=== PATIENT | female | born 1955 | race Caucasian/White ===

== ENCOUNTER → 2022-12-18 14:37 | Outpatient (BNVA) | payer OTHER, SELFPAY | PROVIDERS: PCP Internal Medicine; Visit Provider Hospitalist ==

== ENCOUNTER 2023-01-14 10:15 | Outpatient (REF) | payer OTHER, SELFPAY ==
--- NOTE | ~2023-01-14 | XR_ITS ---
EXAMINATION: XR CHEST CLINICAL INFORMATION: Chronic cough. COMPARISON: None available. TECHNIQUE: 2 views of the chest were obtained. FINDINGS: The lungs are well expanded. Patchy opacity in the left upper lobe. No pleural effusion. Cardiac silhouette is within normal limits. XR/XR chest 2V IMPRESSION: Patchy opacity in the left upper lobe may represent an acute infiltrate. Advise clinical correlation and short interval follow-up imaging.
--- NOTE | 2023-01-14 11:13 | PFT_ITS ---
INDICATION: Chronic cough. SPIROMETRY: FEV1 to FVC of 89% with an FEV1 of 2.56 L, which is 111% predicted and FVC of 2.88 L, which is 95% predicted. There was a significant response to bronchodilators noted with an FVC improvement of 23% and in the FEV1 by 31%. Of note, there was 100% improvement of the EJO14-07. Maximum voluntary ventilation 68% predicted. LUNG VOLUMES: Total lung capacity 93% predicted. DIFFUSION CAPACITY: DLCO 96% predicted. INTERPRETATION: There is no definitive obstructive nor restrictive ventilatory defects identified. There is a significant response to bronchodilators noted, primarily the small airways. There is mild decrease in maximum voluntary ventilation, which is likely secondary to deconditioning. Lung volumes are within normal limits, and diffusion capacity also within normal limits. If asthma is in the differential, a methacholine challenge may be helpful in assessing for hyperreactive airways. Otherwise, clinical correlation warranted. MD TAMMI Crespo/LISET / [id number]
== END 2023-01-14 10:16 | disposition home or self-care (01) ==
LOC: HO.RESP 10:15
PROVIDERS: PCP Internal Medicine; Visit Provider Hospitalist
DX: R05.3 Chronic cough (principal)
CPT/HCPCS: 71046; 94060; 94727; 94729

== ENCOUNTER → 2023-01-14 11:13 | Outpatient (BNV) | payer OTHER, SELFPAY | PROVIDERS: PCP Internal Medicine; Visit Provider Hospitalist | DX: R05.3 Chronic cough (principal) | CPT/HCPCS: 94060; 94727; 94729 ==

== ENCOUNTER 2023-02-12 10:45 | Outpatient (AMB) | payer OTHER, SELFPAY ==
--- NOTE | 2023-02-12 10:56 | A.OFFVIS_ITS ---
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 The patient states that she has had this cough now for many years. the cough is usually nonproductive in nature and moderate severity. Not necessarily associated with position or activities. She has been evaluated for this cough also numerous times. Initially, she was evaluated by Allergy immunology. She did have allergy testing and she had been on allergy shots for chronic rhinitis and postnasal drip. The patient also was started on tricyclics for neurogenic cough. Initially that tricyclics were very effective for her. But then she had to increase the dose further and she did not taking too much of that medication. Now she is trying to get off it. On further questions she does have also reflux disease. The patient had been on omeprazole for some time without any significant improvement of the cough. She has not tried a reflux diet. We did talk about the importance of non acid reflux. Patient also continues to have postnasal drip and chronic rhinitis. Likely component of upper airway cough syndrome. The patient did have a methacholine challenge in the past which apparently was negative although I do not have the results. In addition to that several years ago she did have a chest x-ray. No recent imagi ng studies or pulmonary function studies at this time. 02/12/2023 the patient is here for pulmonary follow-up visit. She continues have a cough. Moderate severity. Nasal therapy was not effective. The patient did undergo pulmonary function studies. Appears to have some degree of response to bronchodilators. Also has some evidence of small airways disease. Therefore will start the patient on respiratory therapy. I do believe Symbicort Will be effective in helping her symptoms. Will go ahead and start the therapy. In addition to that she needs to have a chest x-ray. [facility] Medical History (Updated 02/12/23 @ 11:25 by Helder Hewitt MD) Chronic allergic rhinitis Chronic cough GERD (gastroesophageal reflux disease) Pneumonia Social History (Updated 12/18/22 @ 15:24 by KULDEEP Davila) Patient Tobacco Use Status: Never used Tobacco Review of Systems Const Denies fever(s) and Denies weight loss Eyes Denies change in vision ENT Reports nasal congestion, Reports nasal discharge, Reports post nasal drip and Denies throat swelling Card Denies chest pain Resp Denies chest congestion and Reports cough GI Reports dyspepsia and Reports heartburn Musc Reports no additional complaints Skin/Breast Denies rash Neuro Reports no additional complaints Mauricio/Lymph Denies lymphadenopathy Aller/Immun Denies throat swelling Physical Exam Vital Signs: Last Vital Signs Pulse 89 02/12/23 10:57 Pulse Ox 96 02/12/23 10:57 Oxygen Delivery Method Room Air 02/12/23 10:57 BMI result Body Mass Index 28.3 Const General: comfortable HEENT Head: Yes normocephalic Neck Neck: Yes supple Chest Chest palpation & inspection: normal inspection of the chest Resp Auscultation: clear to auscultation bilaterally, no rales and no wheezes Cardio Rate: regular rate Rhythm: regular rhythm Heart sounds: S1 normal heart sound present and S2 normal heart sound present GI Palpation (GI): Soft to palpation Skin General skin exam: no rashes or lesions noted Extrem General: Yes no clubbing, cyanosis or edema Results Reviewed Results Reviewed: [place] [id number] Pulmonary Function Report Signed Patient: Charmaine Parham MR#: [id number] : 1955 Acct:[id number] Age/Sex: 67 / F ADM Date: 01/14/23 Loc: HO.RESP Attending Dr: Helder Hewitt MD Ordering Physician: Helder Hewitt MD Date of Service: 01/14/23 Procedure(s): PFT? pulmonary function test Accession Number(s): [id number] cc: Helder Hewitt MD~ ? INDICATION:? Chronic cough. ?? SPIROMETRY:? FEV1 to FVC of 89% with an FEV1 of 2.56 L, which is 111% predicted and FVC of 2.88 L, which is 95% predicted.? There was a significant response to bronchodilators noted with an FVC improvement of 23% and in the FEV1 by 31%. Of note, there was 100% improvement of the FUE90-75.? Maximum voluntary ventilation 68% predicted. ?? LUNG VOLUMES:? Total lung capacity 93% predicted. ?? DIFFUSION CAPACITY:? DLCO 96% predicted. ?? INTERPRETATION:? There is no definitive obstructive nor restrictive ventilatory defects identified.? There is a significant response to bronchodilators noted, primarily the small airways.? There is mild decrease in maximum voluntary ventilation, which is likely secondary to deconditioning.? Lung volumes are within normal limits, and diffusion capacity also within normal limits.? If asthma is in the differential, a methacholine challenge may be helpful in assessing for hyperreactive airways.? Otherwise, clinical correlation warranted. ? Helder Hewitt MD ? MR/MODL DD:? 01/15/2023 08:23:35 DT:? 01/15/2023 11:21:30 Job #:? [id number] / [id number] Dictated By: Helder Hewitt MD Signed By: <Electronically signed by Helder Hewitt MD> 01/15/23 1543 DD/ 2 TD/TT: 01/15/23 1121 Supervisor Blood: Assessment & Plan Assessment & Plan (1) Chronic cough: Code(s): R05.3 - Chronic cough (2) Chronic allergic rhinitis: Code(s): J30.9 - Allergic rhinitis, unspecified (3) GERD (gastroesophageal reflux disease): Code(s): K21.9 - Gastro-esophageal reflux disease without esophagitis Plan REC: reflux diet sleep with HOB elevated CXR start Symbicort F/U 3-4 months Orders: Orders XR chest 2V 02/12/23 J18.9 - Pneumonia, unspecified organism Medications: New budesonide-formoterol 160-4.5 mcg/actuation (Symbicort) 2 puffs inhalation BID 30 days 10.2 grams 11RF J44.9 - Chronic obstructive pulmonary disease, unspecified budesonide-formoterol 160-4.5 mcg/actuation (Symbicort) 2 puffs inhalation BID 30 days 10.2 grams 11RF J44.9 - Chronic obstructive pulmonary disease, unspecified Coding Level of Care Code Est Pt Level 4 (98553) Diagnoses Chronic cough R05.3 Chronic allergic rhinitis J30.9 GERD (gastroesophageal reflux disease) K21.9 Time Spent (min) 18
[2023-02-12 10:57] VITALS: PULSE 89; O2SAT 96; BMI 28.3
== END 2023-02-12 11:31 | disposition home or self-care (01) ==
PROVIDERS: PCP Internal Medicine; Visit Provider Hospitalist
DX: R05.3 Chronic cough (principal); J30.9 Allergic rhinitis, unspecified; K21.9 Gastro-esophageal reflux disease without esophagitis
CPT/HCPCS: 99214

== ENCOUNTER → 2023-02-12 10:45 | Outpatient (BNVA) | payer OTHER, SELFPAY | PROVIDERS: PCP Internal Medicine; Visit Provider Hospitalist ==

== ENCOUNTER 2023-03-02 12:19 | Outpatient (REF) | payer OTHER, SELFPAY ==
--- NOTE | ~2023-03-02 | XR_ITS ---
EXAMINATION: XR CHEST CLINICAL INFORMATION: Pneumonia COMPARISON: 01/14/2023 TECHNIQUE: 2 views of the chest were obtained. FINDINGS: There is no gross pneumothorax. Heart size is normal. Stable cardiomediastinal silhouette. Near-complete resolution of previously identified left upper lobe opacity. No pleural effusion. Degenerative changes in the thoracic spine. Possible 5 mm right upper lobe pulmonary nodule. Persistent prominence of the right hilum and haziness in the right infrahilar region. XR/XR chest 2V IMPRESSION: Near-complete resolution of previously identified left upper lobe opacity. Possible 5 mm right upper lobe pulmonary nodule. Persistent prominence of the right hilum and haziness in the right infrahilar region. CT scan of the chest recommended for further evaluation.
== END 2023-03-02 12:20 | disposition home or self-care (01) ==
LOC: HO.XRAY 12:19
PROVIDERS: Visit Provider Hospitalist
DX: J18.9 Pneumonia, unspecified organism (principal)
CPT/HCPCS: 71046

== ENCOUNTER 2023-03-31 14:51 | Outpatient (REF) | payer OTHER, SELFPAY ==
--- NOTE | ~2023-03-31 | CT_ITS ---
EXAMINATION: CT CHEST WITHOUT CONTRAST CLINICAL INFORMATION: Pneumonia. COMPARISON: Chest x-ray 03/02/2023. TECHNIQUE: Multidetector volumetric CT imaging of the chest was done. Axial MIP volume rendering provided. Sagittal and coronal reformatted images were obtained. This CT examination was performed using dose optimization techniques as appropriate, variously including the following: *Automated exposure control *Adjustment of mA and/or kV according to patient size (this includes techniques or standardized protocols for targeted exams where dose is matched to indication/reason for exam; i.e. extremities or head) *Use of iterative reconstruction technique DLP: 214 mGy-cm FINDINGS: LUNGS: 7 mm average diameter at the right apex may be pleural-parenchymal scarring. Additional scattered micronodules for which no follow-up is indicated as per Fleischner Society guidelines. No consolidation. No evidence of interstitial lung disease. MEDIASTINUM: No adenopathy. No pericardial effusion. Small hiatal hernia. CORONARY ARTERY CALCIFICATION: Mild LAD and LCx calcium. PLEURA: There is no pleural effusion. No pleural mass or thickening. AXILLA: No adenopathy. UPPER ABDOMEN: Unremarkable. OSSEOUS STRUCTURES: Mild degenerative changes in the spine. CT/CT chest wo IV con IMPRESSION: No focal pneumonia. 7 mm average diameter nodule at the right apex may be related to pleural parenchymal scarring. Per Fleischner Society Guidelines, recommend a non-contrast chest CT at 6-12 months; if patient is high risk for malignancy, consider an additional non-contrast chest CT at 18-24 months. If patient is low risk for malignancy, non-contrast chest CT at 18-24 months is optional. Fleischner guidelines were followed.
== END 2023-03-31 14:52 | disposition home or self-care (01) ==
LOC: HO.CT 14:51
PROVIDERS: Visit Provider Hospitalist
DX: J18.9 Pneumonia, unspecified organism (principal); R91.1 Solitary pulmonary nodule
CPT/HCPCS: 71250

== ENCOUNTER 2023-07-17 08:52 | Outpatient (REF) | payer MEDICARE, SELFPAY ==
--- NOTE | ~2023-07-17 | CT_ITS ---
EXAMINATION: CT CHEST WITHOUT CONTRAST CLINICAL INFORMATION: Solitary pulmonary nodule. COMPARISON: 03/31/2023 TECHNIQUE: Multidetector volumetric CT imaging of the chest was done. Axial MIP volume rendering provided. Sagittal and coronal reformatted images were obtained. This CT examination was performed using dose optimization techniques as appropriate, variously including the following: *Automated exposure control *Adjustment of mA and/or kV according to patient size (this includes techniques or standardized protocols for targeted exams where dose is matched to indication/reason for exam; i.e. extremities or head) *Use of iterative reconstruction technique DLP: 114 mGy-cm FINDINGS: LUNGS: Stable parenchymal scarring at the lung apices. No new or enlarging pulmonary nodule. No airspace consolidation. Central airways are patent. MEDIASTINUM: No bulky axillary, hilar or mediastinal lymphadenopathy. Great vessels are of normal caliber. Heart size is normal. No pericardial effusion. CORONARY ARTERY CALCIFICATION: Mild. PLEURA: There is no pleural effusion. No pleural mass or thickening. UPPER ABDOMEN: Small hiatal hernia. OSSEOUS STRUCTURES: No destructive bone lesions. CT/CT chest wo IV con IMPRESSION: Stable parenchymal scarring at the lung apices. No new or suspicious pulmonary nodule.
== END 2023-07-17 08:53 | disposition home or self-care (01) ==
LOC: HO.CT 08:52
PROVIDERS: PCP Internal Medicine; Visit Provider Hospitalist
DX: R91.1 Solitary pulmonary nodule (principal)
CPT/HCPCS: 71250

== ENCOUNTER 2023-08-19 09:54 | Outpatient (AMB) | payer MEDICARE, SELFPAY ==
[2023-08-19 10:22] VITALS: PULSE 89; O2SAT 96; BMI 26.6
--- NOTE | 2023-08-19 10:22 | A.OFFVIS_ITS ---
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 The patient states that she has had this cough now for many years. the cough is usually nonproductive in nature and moderate severity. Not necessarily associated with position or activities. She has been evaluated for this cough also numerous times. Initially, she was evaluated by Allergy immunology. She did have allergy testing and she had been on allergy shots for chronic rhinitis and postnasal drip. The patient also was started on tricyclics for neurogenic cough. Initially that tricyclics were very effective for her. But then she had to increase the dose further and she did not taking too much of that medication. Now she is trying to get off it. On further questions she does have also reflux disease. The patient had been on omeprazole for some time without any significant improvement of the cough. She has not tried a reflux diet. We did talk about the importance of non acid reflux. Patient also continues to have postnasal drip and chronic rhinitis. Likely component of upper airway cough syndrome. The patient did have a methacholine challenge in the past which apparently was negative although I do not have the results. In addition to that several years ago she did have a chest x-ray. No recent imaging studies or pulmonary function studies at this time. 02/12/2023 the patient is here for pulmon adam follow-up visit. She continues have a cough. Moderate severity. Nasal therapy was not effective. The patient did undergo pulmonary function studies. Appears to have some degree of response to bronchodilators. Also has some evidence of small airways disease. Therefore will start the patient on respiratory therapy. I do believe Symbicort Will be effective in helping her symptoms. Will go ahead and start the therapy. In addition to that she needs to have a chest x-ray. 08/19/2023 the patient is here for pulmona ry follow-up visit. The patient continues to have a cough. Moderate in severity. The cough seems to be nonproductive in nature. She did try the Symbicort but did feel like he needs significant improvement. She also has a rescue inhaler. She has been trying to take the PPI for the reflux disease and hiatal hernia. The patient although needs to include the reflux diet and also sleeping elevated to avoid the non has a reflux. We talked about that. Perform a barium swallow will be helpful at this time. If abnormal then more reason to have an endoscopy. Otherwise she can have it done with her scheduled colonoscopy in several years from now. We did get look at the pulmonary function studies that she had before demonstrating a significant response to bronchodilators. Therefore, I did recommend she continue the Symbicort but only as needed. I was provide her Conchita Mendez to try him off the throat. She is also on the tricyclic medication for neurogenic cough. Also, we did review the CT scan of the chest that she just had demonstrating no acute disease. She does have some parenchymal disease at the right apical lung area with some pleural thickening little calcification likely chronic. No need for any further follow-up. We will readdress that in a year's time. [facility] Medical History (Updated 08/19/23 @ 18:11 by Helder Hewitt MD) Hiatal hernia Pulmonary nodule Pneumonia GERD (gastroesophageal reflux disease) Chronic allergic rhinitis Chronic cough Social History (Updated 12/18/22 @ 15:24 by KULDEEP Davila) Patient Tobacco Use Status: Never used Tobacco Review of Systems Const Denies fever(s) and Denies weight loss Eyes Denies change in vision ENT Reports nasal congestion, Reports nasal discharge, Reports post nasal drip and Denies throat swelling Card Denies chest pain Resp Denies chest congestion and Reports cough GI Reports dyspepsia and Reports heartburn Musc Reports no additional complaints Skin/Breast Denies rash Neuro Reports no additional complaints Mauricio/Lymph Denies lymphadenopathy Aller/Immun Denies throat swelling Physical Exam Vital Signs: Last Vital Signs Pulse 89 08/19/23 10:22 Pulse Ox 96 08/19/23 10:22 Oxygen Delivery Method Room Air 08/19/23 10:22 BMI result Body Mass Index 26.6 Const General: comfortable HEENT Head: Yes normocephalic Neck Neck: Yes supple Chest Chest palpation & inspection: normal inspection of the chest Resp Auscultation: clear to auscultation bilaterally, no rales and no wheezes Cardio Rate: regular rate Rhythm: regular rhythm Heart sounds: S1 normal heart sound present and S2 normal heart sound present GI Palpation (GI): Soft to palpation Skin General skin exam: no rashes or lesions noted Extrem General: Yes no clubbing, cyanosis or edema Results Reviewed Results Reviewed: [address] [place] [address] CT Scan Report Signed Patient: Charmaine Parham MR#: [id number] : 1955 Acct:[id number] Age/Sex: 68 / F ADM Date: 07/17/23 Loc: HO.CT Attending Dr: Helder Hewitt MD Ordering Physician: Helder Hewitt MD Date of Service: 07/17/23 Procedure(s): CT chest wo IV con Accession Number(s): [id number] cc: MARCELINO MEEK MD; Helder Hewitt MD~ EXAMINATION: CT CHEST WITHOUT CONTRAST CLINICAL INFORMATION: Solitary pulmonary nodule. COMPARISON: 03/31/2023 TECHNIQUE: Multidetector volumetric CT imaging of the chest was done. Axial MIP volume rendering provided. Sagittal and coronal reformatted images were obtained. This CT examination was performed using dose optimization techniques as appropriate, variously including the following: *Automated exposure control *Adjustment of mA and/or kV according to patient size (this includes techniques or standardized protocols for targeted exams where dose is matched to indication/reason for exam; i.e. extremities or head) *Use of iterative reconstruction technique DLP: 114 mGy-cm FINDINGS: LUNGS: Stable parenchymal scarring at the lung apices. No new or enlarging pulmonary nodule. No airspace consolidation. Central airways are patent. MEDIASTINUM: No bulky axillary, hilar or mediastinal lymphadenopathy. Great vessels are of normal caliber. Heart size is normal. No pericardial effusion. CORONARY ARTERY CALCIFICATION: Mild. PLEURA: There is no pleural effusion. No pleural mass or thickening. UPPER ABDOMEN: Small hiatal hernia. OSSEOUS STRUCTURES: No destructive bone lesions. CT/CT chest wo IV con IMPRESSION: Stable parenchymal scarring at the lung apices. No new or suspicious pulmonary nodule. Dictated By: Anabel Owens MD Signed By: <Electronically signed by Anabel Owens MD in OV> 07/22/23 1738 DD/ 0932 TD/TT: Internal Grinder Set Up Operator: Assessment & Plan Assessment & Plan (1) Chronic cough: Code(s): R05.3 - Chronic cough (2) Chronic allergic rhinitis: Code(s): J30.9 - Allergic rhinitis, unspecified (3) GERD (gastroesophageal reflux disease): Code(s): K21.9 - Gastro-esophageal reflux disease without esophagitis Qualifiers: Esophagitis presence: esophagitis presence not specified Qualified Code(s): K21.9 - Gastro-esophageal reflux disease without esophagitis (4) Hiatal hernia: Code(s): K44.9 - Diaphragmatic hernia without obstruction or gangrene Plan REC: reflux diet sleep with HOB elevated restart Symbicort as needed Tessalon pearls as needed Barium swallow CT chest, reassuring, appearing more of apical pleural thickening F/U 6-8 months Orders: Orders [place] barium swallow Today K21.9 - Gastro-esophageal reflux disease without esophagitis Medications: New benzonatate 200 mg PO BID 30 days PRN 60 caps 0RF cough Coding Level of Care Code Est Pt Level 4 (68762) Diagnoses Chronic cough R05.3 Chronic allergic rhinitis J30.9 Gastroesophageal reflux disease, unspecified whether esophagitis present K21.9 Esophagitis presence: esophagitis presence not specified Hiatal hernia K44.9 Time Spent (min) 18
== END 2023-08-19 10:49 | disposition home or self-care (01) ==
PROVIDERS: PCP Internal Medicine; Visit Provider Hospitalist
DX: R05.3 Chronic cough (principal); J30.9 Allergic rhinitis, unspecified; K21.9 Gastro-esophageal reflux disease without esophagitis; K44.9 Diaphragmatic hernia without obstruction or gangrene
CPT/HCPCS: 99214

== ENCOUNTER → 2023-08-19 09:54 | Outpatient (BNVA) | payer MEDICARE, SELFPAY | PROVIDERS: PCP Internal Medicine; Visit Provider Hospitalist | DX: J30.9 Allergic rhinitis, unspecified (principal); R05.3 Chronic cough; K21.9 Gastro-esophageal reflux disease without esophagitis; K44.9 Diaphragmatic hernia without obstruction or gangrene | CPT/HCPCS: 99212 ==

== ENCOUNTER 2023-10-11 09:27 | Emergency (ER) | payer MEDICARE, SELFPAY ==
--- NOTE | 2023-10-11 | ECG_ITS ---
Test Reason : DIZZINESS/ SPINNING Blood Pressure : / mmHG Vent. Rate : 089 BPM Atrial Rate : 089 BPM P-R Int : 134 ms QRS Dur : 088 ms QT Int : 356 ms P-R-T Axes : 059 013 -26 degrees QTc Int : 433 ms Normal sinus rhythm Nonspecific ST and T wave abnormality Abnormal ECG No previous ECGs available Referred By: Generic ED Physician Electronically Signed By:AMPARO SPENCER
[2023-10-11 09:38] VITALS: BP 159/75; PULSE 94; RESP 16; TEMP 36.7; O2SAT 96; BMI 28.7
[2023-10-11 10:19] LABS: MANUAL DIFF FLAG NO
[2023-10-11 10:20] LABS: Basophils Percent Auto 0.7 % (0-2); Eosinophils Absolute Auto 0.1 X10*3/uL (0.0-0.4); Eosinophils Percent Auto 1.5 % (0-4); Hematocrit 42.3 % (37.0-47.0); Hemoglobin 14.5 g/dl (12.0-16.0); Imm Gran Abs Auto 0.02 X10*3/uL (0.00-0.03); Imm Gran Pct Auto 0.3 % (0.0-0.4); Lymphocytes Percent Auto 17.1 % (20-40); Mean Corpuscular HGB Conc 34.3 g/dl (31.0-35.0); Mean Corpuscular Hemoglobin 32.3 pg (27.0-33.0); Mean Corpuscular Volume 94.2 fL (80.0-98.0); Mean Platelet Volume 9.6 fL (9.4-12.3); Monocytes Absolute Auto 0.4 X10*3/uL (0.1-1.2); Monocytes Percent Auto 5.8 % (2-11); Neutrophils Absolute Auto 4.5 x10*3/uL (2.0-8.3); Neutrophils Percent Auto 74.6 % (45-73); Platelet Count 271 X10*3/uL (160-400); Red Blood Count 4.49 X10*6/uL (4.20-5.50); Red Cell Distribution Width 12.2 % (11.0-16.0); White Blood Count 6.1 X10*3/uL (4.8-10.8)
[2023-10-11 10:35] LABS: Anion Gap 14 (12-20); Blood Urea Nitrogen 12 mg/dL (9-16); Calcium 9.4 mg/dL (8.4-10.2); Carbon Dioxide 26 mmol/L (22-29); Chloride 103 mmol/L (96-108); Creatinine Clr Calc Pharmacy 73.9; Estimated Glomerular Filt Rate > 60; Glucose Random 106 mg/dL (60-115); Potassium 4.6 mmol/L (3.3-5.1); Sodium 138 mmol/L (135-145)
[2023-10-11 10:52] LABS: Troponin-I High Sensitivity < 2.7 ng/L (<3.5-17.0)
[2023-10-11 11:15] VITALS: BP 153/88; BP 158/92; PULSE 88; PULSE 92
[2023-10-11 11:16] VITALS: BP 152/102; PULSE 92
[2023-10-11 11:44] LABS: Appearance Urine Clear; Color Urine Yellow; Glucose Urine UA Negative (Negative); Leukocyte Esterase Urine Negative (Negative); Nitrite Urine Negative (Negative); Specific Gravity - Urine <= 1.005 (1.005-1.025); Urine Blood Negative (Negative); Urine Ketones Negative (Negative); Urine Protein Negative (Neg-Trace)
--- NOTE | 2023-10-11 13:24 | ED_ITS ---
HPI - Dizziness General Chief Complaint: Dizziness Stated Complaint: Dizziness Time Seen by Provider: 10/11/23 10:23 Source: patient Mode of arrival: ambulatory History of Present Illness HPI Narrative: 68F hx of HTn p/w getting up to the bathroom this morning and feeling very unsteady on arrival requiring spport from hanging onto the wall, movement makes it worse and is associated with nausea. Otherwise denies recent illnesses. Pt has strong family history of benign brain tumors and is concerned for this. Symptoms are currently controlled. She does report recent increase in TCA which she takes for persistent cough. Related Data Home Medications ?Medication ?Instructions ?Recorded ?Confirmed amitriptyline 10 mg tablet 30 mg PO DAILY 12/18/22 atorvastatin 80 mg tablet 80 mg PO DAILY 12/18/22 calcium-vitamin D3-vitamin K 500 1 tab PO DAILY 12/18/22 mg-100 unit-40 mcg chewable tablet cholecalciferol (vitamin D3) 25 25 mcg PO DAILY 12/18/22 mcg (1,000 unit) capsule lactobacillus combination no.9 4 4,000 mmu cells PO DAILY 12/18/22 billion cell capsule (Adult 50 Plus Probiotic) psyllium husk 0.4 gram capsule 0.4 g PO DAILY 12/18/22 (Daily Fiber) valsartan 160 mg tablet 160 mg PO BID 12/18/22 aspirin 81 mg tablet,delayed 81 mg PO DAILY 08/19/23 release omega 9-mhp-mdf-fish oil 1,200 mg cap PO 08/19/23 (144 mg-216 mg) capsule (Fish Oil) Previous Rx's ?Medication ?Instructions ?Recorded benzonatate 200 mg capsule 200 mg PO BID PRN cough 30 days 08/19/23 #60 caps Allergies Allergy/AdvReac Type Severity Reaction Status Date / Time erythromycin base AdvReac Severe GI Upset Verified 10/11/23 09:43 Review of Systems 2 Review of Systems: Pertinent positives and negatives as stated in HPI PMFSH Past Medical History Source: nursing notes reviewed Medical History Hiatal hernia Pulmonary nodule Pneumonia GERD (gastroesophageal reflux disease) Chronic allergic rhinitis Chronic cough Social History Social History Patient Tobacco Use Status: Never used Tobacco Advance Directives: Yes Advance Directives Information Provided: Yes Advance Directives on File: No Do you have a plan to hurt others: No Plan Physical Exam 2 Vital Signs: Vital Signs: Last Vital Signs Temp 98.1 F 10/11/23 09:38 Pulse 92 10/11/23 11:16 Resp 16 10/11/23 09:38 BP 152/102 H 10/11/23 11:16 Pulse Ox 96 10/11/23 09:38 O2 Del Method Room Air 10/11/23 09:38 BMI result Body Mass Index 28.7 VITAL SIGNS: Reviewed. GENERAL: Well developed, well nourished, in no acute distress. HEAD: Normocephalic/atraumatic EYES: PERRLA, EOMI, no nystagmus EARS: Ext canals without abnormality NOSE: Nares patent bilateral OROPHARYNX: no oral lesions noted, posterior pharynx clear NECK: Supple, no adenopathy LUNGS: Normal breath sounds. No adventitious sounds or accessory muscle use. SpO2<96> CARDIOVASCULAR: Regular rate and rhythm without noted murmurs, no JVD or lower extremity edema. ABDOMEN: Soft, non-tender, non-distended with bowel sounds. MUSCULOSKELETAL: No tenderness, deformities, or effusions noted on gross inspection. EXTREMITIES: No cyanosis, clubbing or edema. SKIN: Inspection of the skin reveals no rashes NEUROLOGIC: Alert and oriented x 4. Strength and sensation to light touch were grossly intact x 4, no pronator drift, no facial asymmetry, cranial nerves 2-12 are grossly intact. Medications Administered Discontinued Medications Generic Name Dose Route Start Last Admin Trade Name Freq PRN Reason Stop Dose Admin Meclizine HCl 12.5 mg 10/11/23 13:02 10/11/23 13:25 Meclizine Hcl 12.5 Mg Tablet PO 10/11/23 13:03 12.5 mg ONCE ONE Administration Medical Decision Making Medical Decision Making MDM Narrative: 68-year-old female with history and clinical presentation, DDX: BPPV, infection, anemia, electrolyte derangement. I reviewed all investigations and hematologic indices are negative for leukocytosis/anemia/thrombocytopenia. Chemistry indices are negative for GABE/electrolyte derangements and high sensitivity troponin is undetectable. Urinalysis negative for UTI or hematuria. Patient is gradually continue to improve, she was offered a trial dose of 12.5 mg of meclizine and reports improvement. She was strongly encouraged to follow- up with the primary care doctor tomorrow and consider blood pressure medication adjustment. Differential Diagnosis Differential Diagnoses: The differential diagnosis associated with the presentation includes Please see the discussion above Admission/Observation Consideration of admission/observation: Escalation of care including admission/observation considered Please see the discussion above Lab Data MDM Lab Attestation statement: I reviewed the patient's lab results. Please see the discussion above 10/11/23 10:15 10/11/23 10:15 Labs: Lab Results 10/11/23 10/11/23 Range/Units 10:15 11:36 WBC 6.1 (4.8-10.8) X10*3/uL RBC 4.49 (4.20-5.50) X10*6/uL Hgb 14.5 (12.0-16.0) g/dl Hct 42.3 (37.0-47.0) % MCV 94.2 (80.0-98.0) fL MCH 32.3 (27.0-33.0) pg MCHC 34.3 (31.0-35.0) g/dl RDW 12.2 (11.0-16.0) % Plt Count 271 (160-400) X10*3/uL MPV 9.6 (9.4-12.3) fL Immature Gran % (Auto) 0.3 (0.0-0.4) % Neut % (Auto) 74.6 H (45-73) % Lymph % (Auto) 17.1 L (20-40) % Mills % (Auto) 5.8 (2-11) % Eos % (Auto) 1.5 (0-4) % Baso % (Auto) 0.7 (0-2) % Lymph # (Auto) 1.0 L (1.2-4.9) X10*3/uL Mills # (Auto) 0.4 (0.1-1.2) X10*3/uL Eos # (Auto) 0.1 (0.0-0.4) X10*3/uL Baso # (Auto) 0.0 (0.0-0.2) X10*3/uL Abs Immat Gran (auto) 0.02 (0.00-0.03) X10*3/uL Absolute Neuts (auto) 4.5 (2.0-8.3) x10*3/uL Absolute Nucleated RBC 0.000 (0.0-0.012) X10*3/uL Nucleated RBC % (auto) 0.0 (0.0-0.2) /100WBC Sodium 138 (135-145) mmol/L Potassium 4.6 (3.3-5.1) mmol/L Chloride 103 (96-108) mmol/L Carbon Dioxide 26 (22-29) mmol/L Anion Gap 14 (12-20) BUN 12 (9-16) mg/dL Creatinine 0.72 (0.5-1.4) mg/dL Estim Creat Clear Calc 73.9 Estimated GFR > 60 Random Glucose 106 (60-115) mg/dL Calcium 9.4 (8.4-10.2) mg/dL Troponin I High Sens < 2.7 (<3.5-17.0) ng/L Urine Color Yellow Urine Appearance Clear Urine pH 7.0 (5.0-9.0) Ur Specific [place] <= 1.005 (1.005-1.025) Urine Protein Negative (Neg-Trace) mg/dL Urine Glucose (UA) Negative (Negative) mg/dL Urine Ketones Negative (Negative) mg/dL Urine Blood Negative (Negative) Urine Nitrite Negative (Negative) Ur Leukocyte Esterase Negative (Negative) Independent Interpretation I performed an independent interpretation of an: EKG Interpretation: Normal sinus rhythm, HR-89, no STEMI, but noted ST and T-wave abnormalities in inferior leads, NC/QRS/QTC is within normal limits. There is no EKG for comparison. Chronic Conditions Patient?s care impacted by: Hypertension Critical Care Time Critical Care Time Critical Care Time: Yes Total Critical Care Time: 30 Attestation: I personally attest to this time spent taking care of the patient. Discharge Plan Discharge Clinical Impression: Vertigo Patient Disposition: Home, Self-Care Instructions: Vertigo (ED) Additional Instructions: 1. Resume all home medications as prescribed. 2. Follow-up with primary care doctor on Thursday morning. Return to the ER if you develop any worsening symptoms or additional new symptoms. Prescriptions: No Action atorvastatin 80 mg tablet 80 mg PO DAILY amitriptyline 10 mg tablet 30 mg PO DAILY valsartan 160 mg tablet 160 mg PO BID Adult 50 Plus Probiotic 4 billion cell capsule 4,000 mmu cells PO DAILY Rx Instructions: administer with a meal cholecalciferol (vitamin D3) 25 mcg (1,000 unit) capsule 25 mcg PO DAILY psyllium husk [Daily Fiber] 0.4 gram capsule 0.4 g PO DAILY calcium-vitamin D3-vitamin K 500-100-40 mg-unit-mcg tablet,chewable 1 tab PO DAILY aspirin 81 mg tablet,delayed release (DR/EC) 81 mg PO DAILY omega 3-xno-vue-fish oil [Fish Oil] 1,200 (144-216) mg capsule PO benzonatate 200 mg capsule 200 mg PO BID PRN (Reason: cough) 30 Days Qty: 60 0RF Referrals: Taz Griffiths MD [Primary Care Provider] - Print Language: Arabic
[2023-10-11] MEDS: Meclizine HCl 12.5 MG TABLET PO (13:25)
[2023-10-11 14:24] VITALS: BP 155/96; PULSE 87; RESP 16; O2SAT 97
[2023-10-11 14:25] VITALS: BP 155/96; PULSE 87; RESP 16; TEMP 36.7; O2SAT 97
== END 2023-10-11 14:28 | disposition home or self-care (01) ==
PROVIDERS: Emergency Provider Student in an Organized Health Care Education/Training Program; PCP Internal Medicine
DX: R42 Dizziness and giddiness (principal); I10 Essential (primary) hypertension
CPT/HCPCS: 36415; 80048; 81003; 84484; 85025; 93005; 99283; 99284

== ENCOUNTER → 2023-10-11 10:02 | Outpatient (BNV) | payer MEDICARE, SELFPAY | PROVIDERS: Emergency Provider Student in an Organized Health Care Education/Training Program; PCP Internal Medicine; Visit Provider Internal Medicine | DX: R94.31 Abnormal electrocardiogram [ECG] [EKG] (principal) | CPT/HCPCS: 93010 ==

== ENCOUNTER 2023-11-17 07:48 | Outpatient (REF) | payer MEDICARE, SELFPAY ==
--- NOTE | ~2023-11-17 | FL_ITS ---
EXAMINATION: XR FLUOROSCOPY UPPER GI WITH AIR CLINICAL INFORMATION: Reflux COMPARISON: None TECHNIQUE: Fluoroscopic air contrast upper GI examination was performed utilizing standard techniques with thin and thick barium and effervescent granules. Numerous spot images were obtained. FINDINGS: Lateral cine images of the oropharynx and hypopharynx demonstrate normal swallow mechanism with normal epiglottic inversion and soft palate elevation. No tracheal penetration, glottic or subglottic aspiration identified. No nasopharyngeal reflux present. Hypopharyngeal structures appear normal without evidence of mass or diverticulum. There is mild cricopharyngeal achalasia present. Dual and single contrast images of the esophagus demonstrate normal caliber, contour, and mucosal pattern. No evidence of stricture, mass, or ulcerations identified. Esophageal peristalsis is mildly disorganized. No evidence of hiatus hernia identified. Gastroesophageal reflux is seen up to the midesophagus. Dual contrast and single contrast images of the stomach demonstrated normal contour and mucosal pattern without evidence of mass, ulceration, or other abnormality. Contrast freely passed into the gastric antrum and duodenal bulb without delay. Single and air-contrast images of the duodenal bulb demonstrate no abnormality. The duodenal sweep has a normal appearance, course, and mucosal fold appearance. The imaged proximal jejunum has a normal fold pattern and caliber. FLUOROSCOPY TIME: 3 minutes 44 seconds Number of Spot Images: 11 Number of Cine: 13 DOSE AREA PRODUCT: 1935 uGy-m2 (microgray-meter squared) FL/FL barium swallow with air IMPRESSION: 1. Mild cricopharyngeal achalasia 2. Moderate gastroesophageal reflux 3. Mildly disorganized esophageal peristalsis This procedure was performed by Pradip Mccartney PA-C, and supervised by Dr. Rockwell
== END 2023-11-17 07:49 | disposition home or self-care (01) ==
LOC: HO.XRAY 07:48
PROVIDERS: PCP Nurse Practitioner Adult Health; Visit Provider Hospitalist
DX: K21.9 Gastro-esophageal reflux disease without esophagitis (principal)
CPT/HCPCS: 74221

== ENCOUNTER → 2023-11-17 07:49 | Outpatient (BNV) | payer MEDICARE, SELFPAY | PROVIDERS: PCP Nurse Practitioner Adult Health; Visit Provider Physician Assistant Surgical | DX: K21.9 Gastro-esophageal reflux disease without esophagitis (principal) | CPT/HCPCS: 74246 ==

== ENCOUNTER 2024-02-17 09:38 | Outpatient (AMB) | payer MEDICARE, SELFPAY ==
--- NOTE | 2024-02-17 09:40 | MHC.OFFVIS ---
Vital Signs 02/17/24 09:41 Height 5 ft 3 in Weight 157 lb 10.088 oz BMI 27.9 BP 132/70 Blood Pressure Location Lt brachial Position Sitting Pulse 74 Pulse Source Pulse Oximeter Pulse Oximetry (%) 98 Oxygen Delivery Method Room Air Intake Visit Reasons: Dyspnea Allergies erythromycin base Adverse Reaction (Severe, Verified 02/17/24 09:44) GI Upset HPI Comments Details: The patient is a 68 year woman with a known history of her chronic cough. The patient states that she has had this cough now for many years. the cough is usually nonproductive in nature and moderate severity. Not necessarily associated with position or activities. She has been evaluated for this cough also numerous times. Initially, she was evaluated by Allergy immunology. She did have allergy testing and she had been on allergy shots for chronic rhinitis and postnasal drip. The patient also was started on tricyclics for neurogenic cough. Initially that tricyclics were very effective for her. But then she had to increase the dose further and she did not taking too much of that medication. Now she is trying to get off it. On further questions she does have also reflux disease. The patient had been on omeprazole for some time without any significant improvement of the cough. She has not tried a reflux diet. We did talk about the importance of non acid reflux. Patient also continues to have postnasal drip and chronic rhinitis. Likely component of upper airway cough syndrome. The patient did have a methacholine challenge in the past which apparently was negative although I do not have the results. In addition to that several years ago she did have a chest x-ray. No recent imaging studies or pulmonary function studies at this time. 02/12/2023 the patient is here for pulmonary follow-up visit. She continues have a cough. Moderate severity. Nasal therapy was not effective. The patient did undergo pulmonary function studies. Appears to have some degree of response to bronchodilators. Also has some evidence of small airways disease. Therefore will start the patient on respiratory therapy. I do believe Symbicort Will be effective in helping her symptoms. Will go ahead and start the therapy. In addition to that she needs to have a chest x-ray. 08/19/2023 the patient is here for pulmonary follow-up visit. The patient continues to have a cough. Moderate in severity. The cough seems to be nonproductive in nature. She did try the Symbicort but did feel like he needs significant improvement. She also has a rescue inhaler. She has been trying to take the PPI for the reflux disease and hiatal hernia. The patient although needs to include the reflux diet and also sleeping elevated to avoid the non has a reflux. We talked about that. Perform a barium swallow will be helpful at this time. If abnormal then more reason to have an endoscopy. Otherwise she can have it done with her scheduled colonoscopy in several years from now. We did get look at the pulmonary function studies that she had before demonstrating a significant response to bronchodilators. Therefore, I did recommend she continue the Symbicort but only as needed. I was provide her Conchita Mendez to try him off the throat. She is also on the tricyclic medication for neurogenic cough. Also, we did review the CT scan of the chest that she just had demonstrating no acute disease. She does have some parenchymal disease at the right apical lung area with some pleural thickening little calcification likely chronic. No need for any further follow-up. We will readdress that in a year's time. 02/17/2024 the patient is here for a pulmonary follow-up visit. Overall the patient has been doing okay. She weaned off the TCAs in having a lot of symptoms. Now she is back to her baseline. She does feel better. She did start Symbicort recently. She is using it 2 puffs daily. She is however getting some tremors. I did advise her to decrease it to 1 puff twice a day. She is going to rinse well. And call if any issues. The patient can also be switched to a different agent such as an Advair HFA if she continues to have tremulousness on the Symbicort with tends to be little stronger. In addition to that the patient did have a barium swallow. She does have moderate degree of reflux disease also mild achalasia. No evidence of any hiatal hernia was appreciated. Still with significant reflux she knows that this can result in chronic cough and also exacerbations or aggravations of asthma like symptoms. Therefore should continue reflux diet. We did go over it. She needs to make sure to sleep elevated and also at some point be evaluated by GI. I did put in a GI referral at this time. She did have a CT scan of the chest back in early 2023 demonstrating some minimal scarring at the top of the lungs but nothing that is significant and does not need additional followups at this time. She will continue with the current respiratory therapy will follow-up in 6 months [facility] Medical History Hiatal hernia Pulmonary nodule Pneumonia GERD (gastroesophageal reflux disease) Chronic allergic rhinitis Chronic cough Social History Patient Tobacco Use Status: Never used Tobacco Review of Systems Const Denies fever(s) and Denies weight loss Eyes Denies change in vision ENT Reports nasal congestion, Reports nasal discharge, Reports post nasal drip and Denies throat swelling Card Denies chest pain Resp Denies chest congestion and Reports cough GI Reports dyspepsia and Reports heartburn Musc Reports no additional complaints Skin/Breast Denies rash Neuro Reports no additional complaints Mauricio/Lymph Denies lymphadenopathy Aller/Immun Denies throat swelling Physical Exam Vital Signs: Last Vital Signs Pulse 74 02/17/24 09:41 BP 132/70 02/17/24 09:41 Pulse Ox 98 02/17/24 09:41 Oxygen Delivery Method Room Air 02/17/24 09:41 BMI result Body Mass Index 27.9 Const General: comfortable HEENT Head: Yes normocephalic Neck Neck: Yes supple Chest Chest palpation & inspection: normal inspection of the chest Resp Auscultation: clear to auscultation bilaterally, no rales and no wheezes Cardio Rate: regular rate Rhythm: regular rhythm Heart sounds: S1 normal heart sound present and S2 normal heart sound present GI Palpation (GI): Soft to palpation Skin General skin exam: no rashes or lesions noted Extrem General: Yes no clubbing, cyanosis or edema Assessment & Plan Assessment & Plan (1) Chronic cough: Code(s): R05.3 - Chronic cough Category: Medical (2) Chronic allergic rhinitis: Code(s): J30.9 - Allergic rhinitis, unspecified Category: Medical (3) GERD (gastroesophageal reflux disease): Code(s): K21.9 - Gastro-esophageal reflux disease without esophagitis Category: Medical Qualifiers: Esophagitis presence: esophagitis presence not specified Qualified Code(s): K21.9 - Gastro-esophageal reflux disease without esophagitis (4) Hiatal hernia: Code(s): K44.9 - Diaphragmatic hernia without obstruction or gangrene Category: Medical Plan REC: reflux diet sleep with HOB elevated GI referral restart Symbicort Tessalon pearls as needed CT chest, reassuring, appearing more of apical pleural thickening F/U 6-8 months Orders: Referrals Gastroenterology Referral K21.9 - Gastro-esophageal reflux disease without esophagitis Coding Level of Care Code Est Pt Level 4 (91418) Diagnoses Chronic cough R05.3 Chronic allergic rhinitis J30.9 Gastroesophageal reflux disease, unspecified whether esophagitis present K21.9 Esophagitis presence: esophagitis presence not specified Hiatal hernia K44.9 Time Spent (min) 17
[2024-02-17 09:41] VITALS: BP 132/70; PULSE 74; O2SAT 98; BMI 27.9
== END 2024-02-17 10:10 | disposition home or self-care (01) ==
PROVIDERS: PCP Internal Medicine; Visit Provider Hospitalist
DX: R05.3 Chronic cough (principal); J30.9 Allergic rhinitis, unspecified; K21.9 Gastro-esophageal reflux disease without esophagitis; K44.9 Diaphragmatic hernia without obstruction or gangrene
CPT/HCPCS: 99214

== ENCOUNTER → 2024-02-17 09:38 | Outpatient (BNVA) | payer MEDICARE, SELFPAY | PROVIDERS: PCP Internal Medicine; Visit Provider Hospitalist | DX: R05.3 Chronic cough (principal); J30.9 Allergic rhinitis, unspecified; K21.9 Gastro-esophageal reflux disease without esophagitis; K44.9 Diaphragmatic hernia without obstruction or gangrene | CPT/HCPCS: 99212 ==